=== PATIENT | female | born 1955 | race Caucasian/White ===

== ENCOUNTER 2019-03-11 09:41 | Day surgery (SDC) | payer MEDICARE ==
[~2019-03-11] VITALS: Ht 165.1 cm; Wt 101.6 kg
[~2019-03-11 09:41] MED LIST: ASPI81EC PO; B-121000 MC2 PO; CLOB.05TO; Daily Multiple1 EACH PO; FLUO20 PO; Fish Oil 10001000 MG PO; Hair, Skin & N1 EACH PO; LEVSOD100 PO; LOSARTAN-HCTZ1 EAC2 PO; LOVA20 PO; ONDA4 PO; OXYACE5T PO; POTASSIUM PO; POTASSIUM99 MG PO; PROM25 PO; Prilosec Otc20 MG PO; RABE20 PO; VITAMIN D32000 UNIT PO; VITAMINS; VOLTAREN100 GM TOP
--- NOTE | 2019-03-11 10:20 | NUR ---
03/11/19 1020 Aaliyah Fishman CALL LIGHT WITHIN REACH
== END 2019-03-11 12:28 | disposition home or self-care (01) ==
LOC: ORSCSDS 09:41
PROVIDERS: Internal Medicine Gastroenterology
PROC: 0DBP8ZX Excision of Rectum, Via Natural or Artificial Opening Endoscopic, Diagnostic (ICD-10-PCS; principal; 2019-03-11 11:00)
PROC: 0DBK8ZX Excision of Ascending Colon, Via Natural or Artificial Opening Endoscopic, Diagnostic (ICD-10-PCS; principal; 2019-03-11 11:00)
PROC: 0DBH8ZX Excision of Cecum, Via Natural or Artificial Opening Endoscopic, Diagnostic (ICD-10-PCS; principal; 2019-03-11 11:00)
PROC: 0DBL8ZX Excision of Transverse Colon, Via Natural or Artificial Opening Endoscopic, Diagnostic (ICD-10-PCS; principal; 2019-03-11 11:00)
PROC: 0DBN8ZX Excision of Sigmoid Colon, Via Natural or Artificial Opening Endoscopic, Diagnostic (ICD-10-PCS; principal; 2019-03-11 11:00)
DX: Z12.11 Encounter for screening for malignant neoplasm of colon (principal); D12.5 Benign neoplasm of sigmoid colon; D12.0 Benign neoplasm of cecum; D12.2 Benign neoplasm of ascending colon; K63.5 Polyp of colon; K62.1 Rectal polyp; K64.8 Other hemorrhoids; I10 Essential (primary) hypertension; G47.33 Obstructive sleep apnea (adult) (pediatric); Z87.891 Personal history of nicotine dependence; E03.9 Hypothyroidism, unspecified; Z79.899 Other long term (current) drug therapy; Z79.82 Long term (current) use of aspirin; E66.01 Morbid (severe) obesity due to excess calories; Z68.37 Body mass index [BMI] 37.0-37.9, adult
CPT/HCPCS: 88305; J2704; J7120